=== PATIENT | male | born 1945 | race Caucasian/White ===

== ENCOUNTER 2016-06-12 01:55 | Observation (INO) | payer OTHER ==
[2016-06-12] VITALS (16 sets, daily range): BP systolic 101–139; BP diastolic 59–75; PULSE 62–91; RESP 16–19; TEMP 97.8; O2SAT 94–97
[~2016-06-12] VITALS: Ht 177.8 cm; Wt 129.7 kg
[~2016-06-12 01:55] MED LIST: CIPR500T4 PO; LISI-360 PO; METF850T PO; NOVONP2 SQ; OMEP20CA5 PO; PERC5TAB12 PO; SYNT200T PO; SYNT25TA PO; TYLE3 PO
[2016-06-12] MEDS ORDERED: SODIUM CHLORIDE 0.9% FLUSH 10 ML FLUSH IVF PRN ×2 (02:15→04:45)
[2016-06-12] MEDS ORDERED: ASPIRIN 81 MG CHEW TAB CHEW ONE (02:15)
[2016-06-12] MEDS: NITROGLYCERIN 0.4 MG SL 25 TABS/BTL SL PRN ×3 (02:28→02:44)
[2016-06-12] MEDS: SODIUM CHLOR 0.9% 1000 ML INJ 1,000 ML IV SCH ×2 (02:28→13:50)
[2016-06-12 02:32] LABS: AUTOMATED NEUTROPHIL # 4.4 TH/MM3 (1.8-7.7); BASOPHIL % 0.5 % (0.0-2.0); EOSINOPHIL # 0.2 TH/MM3 (0-0.4); EOSINOPHIL % 2.4 % (0.0-4.0); HEMATOCRIT 38.8 % (39.0-51.0); HEMO FLAGS DIFF FINAL; LYMPH % 31.2 % (9.0-44.0); LYMPHOCYTE # 2.4 TH/MM3 (1.0-4.8); MEAN CELL VOLUME 80.4 FL (80.0-100.0); MEAN CORPUSCULAR HEMOGLOBIN 26.6 PG (27.0-34.0); MEAN CORPUSCULAR HGB CONC 33.1 % (32.0-36.0); MONO % 7.8 % (0.0-8.0); NEUT % 58.1 % (16.0-70.0); PLATELET COUNT 180 TH/MM3 (150-450); RED BLOOD COUNT 4.83 MIL/MM3 (4.50-5.90); RED CELL DISTRIBUTION WIDTH 13.1 % (11.6-17.2); WHITE BLOOD COUNT 7.6 TH/MM3 (4.0-11.0)
[2016-06-12 02:37] LABS: CHLORIDE 105 MEQ/L (98-107); POTASSIUM 3.8 MEQ/L (3.5-5.1); SODIUM (NA) 141 MEQ/L (136-145)
[2016-06-12 02:40] LABS: ANION GAP 7 MEQ/L (5-15); BICARBONATE 28.7 MEQ/L (21.0-32.0); MAGNESIUM 1.9 MG/DL (1.5-2.5)
[2016-06-12 02:41] LABS: BLOOD UREA NITROGEN 21 MG/DL (7-18)
[2016-06-12 02:42] LABS: APTT (PATIENT) 25.5 SEC (24.3-30.1); PROTHROMBIN TIME - PATIENT 10.7 SEC (9.8-11.6)
[2016-06-12 02:44] LABS: GLOMERULAR FILTRATION RATE 55 ML/MIN (>89)
[2016-06-12 02:47] LABS: CREATINE KINASE 147 U/L (39-308)
--- NOTE | 2016-06-12 02:53 | RADHPO ---
EXAM DATE/TIME: 06/12/2016 02:39 [facility] COMPARISON: CHEST SINGLE AP, February 27, 2013, 22:22. INDICATIONS : Chest pain. MEDICAL HISTORY : None. SURGICAL HISTORY : None. ENCOUNTER: Initial ACUITY: 1 day PAIN SCORE: 6/10 LOCATION: Bilateral chest FINDINGS: A single view of the chest demonstrates the lungs to be symmetrically aerated without evidence of mas s, infiltrate or effusion. The cardiomediastinal contours are unremarkable. Osseous structures are intact. Advanced osteoarthritis of the left shoulder. Degenerative changes of the thoracic spine. CONCLUSION: No acute disease. Ole Silva Jr., MD on June 12, 2016 at 2:51 Board Certified Radiologist. This report was verified electronically.
[2016-06-12] MEDS ORDERED: LEVO.2 PO (02:56)
[2016-06-12] MEDS ORDERED: LISI10TA3 PO (02:56)
[2016-06-12] MEDS ORDERED: NOVONP2 SQ (02:56)
[2016-06-12] MEDS ORDERED: METF850T PO (02:56)
[2016-06-12] MEDS ORDERED: TERA10CA3 PO (02:56)
[2016-06-12] MEDS ORDERED: SYNT25TA PO (02:56)
[2016-06-12] MEDS ORDERED: PRIL20CA9 PO (02:56)
[2016-06-12] MEDS ORDERED: GLIP10TA6 PO (02:56)
[2016-06-12] MEDS ORDERED: QUET1TAB9 PO (02:56)
[2016-06-12] MEDS ORDERED: ASPI1TAB69 PO (02:56)
[2016-06-12 02:59] LABS: CKMB 1.9 NG/ML (0.5-3.6)
[2016-06-12] MEDS ORDERED: NITROGLYCERIN 2% OINT 1 GM PACKET TOPICAL ONE (03:45)
[2016-06-12] MEDS ORDERED: ONDANSETRON HCL 4 MG/2 ML VIAL IV PUSH ONE (03:45)
[2016-06-12] MEDS ORDERED: MORPHINE SULFATE 4 MG/ML INJ IV PUSH ONE (03:45)
--- NOTE | 2016-06-12 03:51 | PD ---
HPI Chief Complaint: Chest Pain Time Seen by Provider: 02:11 Travel History International Travel<30 days: No Contact w/Intl Traveler<30days: No Traveled to known affect area: No History of Present Illness HPI 70-year-old male presents to the emergency department for complaint of retrosternal chest pain 5/10 in intensity without shortness of breath sweats nausea vomiting or referred pain. Patient has hypertension dyslipidemia and diabetes. Patient denies tobacco use. Symptoms have been present since approximately 3 PM. Patient did take one 81 mg aspirin prior to arrival to the emergency department. Patient denies known cardiac disease or evaluation for cardiac disease. Patient is followed by the [facility] and does not have a change management manager. Patient rates pain as constant. Patient is unable to identify exacerbating or alleviating factors. PFSH Past Medical History Narrative Medical Hypertension dyslipidemia diabetes hypothyroidism appendectomy cholecystectomy no tobacco use nursing notes. High Cholesterol: Yes Diabetes: Yes Patient Takes Glucophage: No Diminished Hearing: No GERD: Yes Immunizations Current: Yes Thyroid Disease: Yes (HYPO) Tetanus Vaccination: < 5 Years Influenza Vaccination: Yes Past Surgical History Appendectomy: Yes Cholecystectomy: Yes Social History Alcohol Use: No Tobacco Use: No Substance Use: No Allergies-Medications (Allergen,Severity, Reaction): Coded Allergies: Contrast Media (Verified Allergy, Severe, HOSPITALIZED FROM REACTION, 02/27) Reported Meds & Prescriptions Reported Meds & Active Scripts Active Reported Novolin N Inj (Insulin Human NPH) 1,000 Unit/10 Ml Vial 100 Units SQ BID Aspirin 81 Mg Tabdr 81 Mg PO DAILY Terazosin (Terazosin HCl) 10 Mg Cap 10 Mg PO HS Quetiapine (Quetiapine Fumarate) 200 Mg Tab 200 Mg PO HS Glipizide 10 Mg Tab 25 Mg PO BIDAC Take 30 minutes before a meal Synthroid (Levothyroxine Sodium) 25 Mcg Tab 225 Mcg PO DAILY Synthroid (Levothyroxine Sodium) 200 Mcg Tab 200 Mcg PO DAILY Metformin (Metformin HCl) 850 Mg Tab 850 Mg PO BIDPC With meals Prilosec (Omeprazole) 20 Mg Cap 20 Mg PO DAILY Lisinopril 10 Mg Tab 10 Mg PO DAILY Review of Systems Except as stated in HPI: all other systems reviewed are Neg General / Constitutional: No: Fever HENT: No: Congestion Cardiovascular: No: Chest Pain or Discomfort Respiratory: No: Shortness of Breath Gastrointestinal: No: Nausea, Vomiting, Abdominal Pain Genitourinary: No: Flank Pain Musculoskeletal: No: Myalgias, Arthralgias, Edema Skin: No Rash Neurologic: No: Weakness Psychiatric: No: Anxiety Endocrine: No: Heat Intolerance Hematologic/Lymphatic: No: Easy Bruising Physical Exam Narrative GENERAL: Well-developed well-nourished male in no acute distress no respiratory distress SKIN: Warm and dry. HEAD: Normocephalic. EYES: No scleral icterus. No injection or drainage. NECK: Supple, trachea midline. No JVD or lymphadenopathy. CARDIOVASCULAR: Regular rate and rhythm without murmurs, gallops, or rubs. RESPIRATORY: Breath sounds equal bilaterally. No accessory muscle use. GASTROINTESTINAL: Abdomen soft, non-tender, nondistended. MUSCULOSKELETAL: No cyanosis, or edema. Radial and dorsalis pedis pulses 2+ to palpation bilaterally BACK: Nontender without obvious deformity. No CVA tenderness. Data Data Last Documented VS Vital Signs Date Time Temp Pulse Resp B/P Pulse Ox O2 Delivery O2 Flow Rate FiO2 06/12/16 03:59 74 16 117/65 95 Room Air 06/12/16 02:10 97.8 Orders Electrocardiogram (06/12/16 02:11) Basic Metabolic Panel (Bmp) (06/12/16 02:11) Ckmb (Isoenzyme) Profile (06/12/16 02:11) Complete Blood Count With Diff (06/12/16 02:11) Magnesium (Mg) (06/12/16 02:11) Prothrombin Time / Inr (Pt) (06/12/16 02:11) Act Partial Throm Time (Ptt) (06/12/16 02:11) Troponin I (06/12/16 02:11) Chest, Single Ap (06/12/16 02:11) Ecg Monitoring (06/12/16 02:11) Bilateral Bp Monitoring (06/12/16 02:11) Iv Access Insert/Monitor (06/12/16 02:11) Oximetry (06/12/16 02:11) Oxygen Administration (06/12/16 02:11) Sodium Chloride 0.9% Flush (Ns Flush) (06/12/16 02:15) Aspirin Chew (Aspirin Chew) (06/12/16 02:15) Nitroglycerin Sl (Nitrostat Sl) (06/12/16 02:15) Sodium Chlor 0.9% 1000 Ml Inj (Ns 1000 M (06/12/16 02:15) CKMB (06/12/16 02:19) CKMB% (06/12/16 02:19) Morphine Inj (Morphine Inj) (06/12/16 03:45) Ondansetron Inj (Zofran Inj) (06/12/16 03:45) Nitroglycerin 2% Oint (Nitroglycerin 2% (06/12/16 03:45) Sodium Chlorid 0.9% 500 Ml Inj (Ns 500 M (06/12/16 04:00) Admit Order (Ed Use Only) (06/12/16 ) ^ Saline Lock (06/12/16 04:41) Resp Oxygen Sukhdev C Titrat 1-4 L (06/12/16 ) ^ Notify Dr: Other (06/12/16 04:41) Sodium Chloride 0.9% Flush (Ns Flush) (06/12/16 09:00) Sodium Chloride 0.9% Flush (Ns Flush) (06/12/16 04:45) Labs Laboratory Tests Test 06/12/16 02:19 White Blood Count 7.6 TH/MM3 Red Blood Count 4.83 MIL/MM3 Hemoglobin 12.9 GM/DL Hematocrit 38.8 % Mean Corpuscular Volume 80.4 FL Mean Corpuscular Hemoglobin 26.6 PG Mean Corpuscular Hemoglobin 33.1 % Concent Red Cell Distribution Width 13.1 % Platelet Count 180 TH/MM3 Mean Platelet Volume 8.4 FL Neutrophils (%) (Auto) 58.1 % Lymphocytes (%) (Auto) 31.2 % Monocytes (%) (Auto) 7.8 % Eosinophils (%) (Auto) 2.4 % Basophils (%) (Auto) 0.5 % Neutrophils # (Auto) 4.4 TH/MM3 Lymphocytes # (Auto) 2.4 TH/MM3 Monocytes # (Auto) 0.6 TH/MM3 Eosinophils # (Auto) 0.2 TH/MM3 Basophils # (Auto) 0.0 TH/MM3 CBC Comment DIFF FINAL Differential Comment Prothrombin Time 10.7 SEC Prothromb Time International 1.0 RATIO Ratio Activated Partial 25.5 SEC Thromboplast Time Sodium Level 141 MEQ/L Potassium Level 3.8 MEQ/L Chloride Level 105 MEQ/L Carbon Dioxide Level 28.7 MEQ/L Anion Gap 7 MEQ/L Blood Urea Nitrogen 21 MG/DL Creatinine 1.30 MG/DL Estimat Glomerular Filtration 55 ML/MIN Rate Random Glucose 210 MG/DL Calcium Level 8.2 MG/DL Magnesium Level 1.9 MG/DL Total Creatine Kinase 147 U/L Creatine Kinase MB 1.9 NG/ML Troponin I LESS THAN 0.02 NG/ML MDM Medical Decision Making Medical Screen Exam Complete: Yes Emergency Medical Condition: Yes Medical Record Reviewed: Yes Interpretation(s) EKG: Normal sinus rhythm rate 80 with first-degree AV block left axis deviation right bundle branch block with left anterior fascicular block this is been noted since 02/27/13 Troponin I less than 0.02, not elevated; CK: 147, not elevated Last Impressions Chest X-Ray 06/12/16210 Signed Impressions: Service Date/Time: Sunday, June 12, 2016 02:39 - CONCLUSION: No acute disease. Ole Silva Jr., MD CBC & BMP Diagram 06/12/16 02:19 Differential Diagnosis Chest pain, ACS, myocardial infarction, musculoskeletal pain, pleurisy, PE, pneumonia Narrative Course Patient placed on technical service specialist; EKG performed revealing no acute ST elevation ; IV access obtained; specimens collected and sent for resulting; patient administered aspirin 162 mg by mouth along with sublingual nitroglycerin Patient reassessed pain has decreased to less than 1/10 in intensity and patient is resting comfortably waiting on lab results EKG reveals no acute ST elevation and chest x-ray reveals no acute abnormality Labs resulted and cardiac enzymes are normal range patient's blood sugars elevated at 210 patient is diabetic Patient will be admitted to chest pain center per protocol call placed to have his service; nurse reports patient doesn't complain of recurrent pain patient administered nitro paste half inch to chest wall along with Zofran 4 mg and 2 mg of morphine sulfate. Patient also administered 500 ml NS bolus. Patient reassessed reports discomfort has diminished again is refusing morphine sulfate which has been canceled. Patient resting comfortably no report of pain. Admitted to [facility]. Physician Communication Physician Communication Discussed with [facility] for chest pain center protocol admission Diagnosis Primary Impression: Chest pain Admitting Information Admitting Physician Requests: Observation Linsey Huerta MD Jun 12, 2016 03:51
[2016-06-12] MEDS ORDERED: SODIUM CHLORID 0.9% 500 ML INJ 500 ML IV ONE (04:00)
[2016-06-12] MEDS ORDERED: SODIUM CHLORIDE 0.9% FLUSH 10 ML FLUSH IV FLUSH PRN (04:45)
[2016-06-12 06:04] LABS: CREATINE KINASE 122 U/L (39-308)
[2016-06-12 06:17] LABS: CKMB 1.7 NG/ML (0.5-3.6)
[2016-06-12] MEDS ORDERED: DEXTROSE 50% IN WATER 50 ML VIAL(D50) IV PUSH PRN (07:30)
[2016-06-12] MEDS ORDERED: GLUCAGON 1 MG/ML VIAL OTHER PRN (07:30)
[2016-06-12] MEDS ORDERED: LEVOTHYROXINE SODIUM 25 MCG TAB PO SCH ×2 (08:00→09:00)
[2016-06-12] MEDS ORDERED: LEVOTHYROXINE SODIUM 200 MCG TAB PO SCH ×2 (08:00→09:00)
--- NOTE | 2016-06-12 08:35 | HHI.HP ---
[facility] Admission Diagnosis chest pain Diagnoses: (1) Chest pain Diagnosis: Principal Chief Complaint: chest pain Travel History International Travel<30 Days: No Contact w/Intl Traveler <30 Da: No Traveled to Known Affected Are: No History of Present Illness 70-year-old male with history of diabetes and hypothyroidism is admitted to chest pain center. Patient states pain started over the left chest at 3 PM yesterday and stayed all day. He describes the pain as "dull achy". He denies any radiation of pain elsewhere. Denies any diaphoresis. Patient states it hurts when he touches a specific area over the left chest but denies pain when he moves his left arm. He does admit to pain with his normal activities. He denies anything making the pain feel better. He states the pain was a 4-5/10 and is currently a 1/10. Denies any cough. 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 Admits to chronic diarrhea but denies any nausea or vomiting. Patient has been nothing by mouth since 9 PM last night. Review of Systems Except as stated in HPI: all other systems reviewed are Neg Past Family Social History Past Medical History Diabetes Hypothyroidism; Thyroid "burned out" Patient states he takes antihypertensive due to diabetes. GERD per EMR Past Surgical History Appendectomy Cholecystectomy Bowel resection Reported Medications Novolin N Inj (Insulin Human NPH) 1,000 Unit/10 Ml Vial 100 Units SQ BID Aspirin 81 Mg Tabdr 81 Mg PO DAILY Terazosin (Terazosin HCl) 10 Mg Cap 10 Mg PO HS Quetiapine (Quetiapine Fumarate) 200 Mg Tab 200 Mg PO HS Glipizide 10 Mg Tab 25 Mg PO BIDAC Take 30 minutes before a meal Synthroid (Levothyroxine Sodium) 25 Mcg Tab 225 Mcg PO DAILY Synthroid (Levothyroxine Sodium) 200 Mcg Tab 200 Mcg PO DAILY Metformin (Metformin HCl) 850 Mg Tab 850 Mg PO BIDPC With meals Prilosec (Omeprazole) 20 Mg Cap 20 Mg PO DAILY Lisinopril 10 Mg Tab 10 Mg PO DAILY Allergies: Coded Allergies: Contrast Media (Verified Allergy, Severe, HOSPITALIZED FROM REACTION, 06/12) Elavil (Verified Allergy, Unknown, 06/12/16) Amitriptyline (Verified Adverse Reaction, Intermediate, [place], ) Family History Mother: Became a diabetic in her 70s. Patient denies any history of heart disease in his mother or father. Social History Patient drinks ~1 beer per week. Patient quit smoking cigarettes at age of 51. Denies illicit drug use. Physical Exam Vital Signs Vital Signs Date Time Temp Pulse Resp B/P Pulse Ox O2 Delivery O2 Flow Rate FiO2 06/12/16 07:56 95 21 06/12/16 05:36 62 16 114/59 96 Room Air 06/12/16 05:36 Room Air 06/12/16 05:02 95 21 06/12/16 03:59 74 16 117/65 95 Room Air 06/12/16 03:45 75 16 101/62 95 Room Air 06/12/16 03:35 79 18 124/68 95 Room Air 06/12/16 03:00 80 19 116/74 94 Room Air 06/12/16 02:44 90 17 112/62 94 Room Air 06/12/16 02:41 18 06/12/16 02:30 91 18 114/62 95 Room Air 06/12/16 02:25 74 18 124/68 96 Room Air 06/12/16 02:18 18 95 Room Air 06/12/16 02:18 95 Room Air 06/12/16 02:15 80 18 116/74 97 Room Air 124/68 06/12/16 02:12 81 18 95 Room Air 06/12/16 02:10 97.8 81 18 139/68 95 Physical Exam GENERAL: BMI 41.0. This is a well-nourished, well-developed patient, in no apparent distress. SKIN: No rashes, ecchymoses or lesions. Warm and dry. HEAD: Atraumatic. Normocephalic. EYES: Pupils equal round and reactive. No scleral icterus. No injection or drainage. ENT: Throat without erythema, tonsillar hypertrophy or exudate. Uvula midline. Airway patent. CHEST: Tender over L lateral pectoral muscle. CARDIOVASCULAR: Regular rate and rhythm without murmurs, gallops, or rubs. RESPIRATORY: Clear to auscultation. Breath sounds equal bilaterally. No wheezes , rales, or rhonchi. GASTROINTESTINAL: Abdomen soft, non-tender, nondistended. MUSCULOSKELETAL: No lower extremity edema bilaterally. NEUROLOGICAL: Awake and alert. Motor grossly within normal limits. Normal speech. Laboratory Laboratory Tests Test 06/12/16 06/12/16 02:19 05:30 White Blood Count 7.6 Red Blood Count 4.83 Hemoglobin 12.9 Hematocrit 38.8 Mean Corpuscular Volume 80.4 Mean Corpuscular Hemoglobin 26.6 Mean Corpuscular Hemoglobin 33.1 Concent Red Cell Distribution Width 13.1 Platelet Count 180 Mean Platelet Volume 8.4 Neutrophils (%) (Auto) 58.1 Lymphocytes (%) (Auto) 31.2 Monocytes (%) (Auto) 7.8 Eosinophils (%) (Auto) 2.4 Basophils (%) (Auto) 0.5 Neutrophils # (Auto) 4.4 Lymphocytes # (Auto) 2.4 Monocytes # (Auto) 0.6 Eosinophils # (Auto) 0.2 Basophils # (Auto) 0.0 CBC Comment DIFF FINAL Differential Comment Prothrombin Time 10.7 Prothromb Time International 1.0 Ratio Activated Partial 25.5 Thromboplast Time Sodium Level 141 Potassium Level 3.8 Chloride Level 105 Carbon Dioxide Level 28.7 Anion Gap 7 Blood Urea Nitrogen 21 Creatinine 1.30 Estimat Glomerular Filtration 55 Rate Random Glucose 210 Calcium Level 8.2 Magnesium Level 1.9 Total Creatine Kinase 147 122 Creatine Kinase MB 1.9 1.7 Troponin I LESS THAN 0.02 LESS THAN 0.02 Result Diagram: 06/12/1621806/12/16218 Imaging Last Impressions Chest X-Ray 06/12/16210 Signed Impressions: Service Date/Time: Sunday, June 12, 2016 02:39 - CONCLUSION: No acute disease. Ole Silva Jr., MD Assessment and Plan Assessment and Plan 70-year-old male with: Chest pain: Chest pain since yesterday. Patient does have a musculoskeletal component of chest pain, but also has risk factors for CAD including age, diabetes, previous h/o tobacco use. Troponin 3 less than 0.02. CK-MB 3 normal. CBC unremarkable. Chest x-ray personally reviewed and appears similar to prior, with no acute disease. EKGs 3 personally interpreted as below: EKG #1 personally interpreted with normal sinus rhythm, right bundle branch block, first-degree AV block with TX interval 216, and left axis deviation. No evidence of ischemia. EKG #2 personally interpreted with normal sinus rhythm, right bundle branch block, left axis deviation, and no evidence of ischemia. EKG #3 @ 0946 personally interpreted with normal sinus rhythm, right bundle branch block, left axis deviation, and no evidence of ischemia. -Patient received 162 mg of aspirin at ~0230. Will continue his home 81 mg daily aspirin this morning. -Nitro/Pratts/morphine prn pain. Patient received 3 doses of sublingual nitroglycerin in the ED, but it does not appear he had significant improvement with this. He also had Nitro ointment. -Monitor telemetry -Nuclear stress test ordered for today -NPO. Was started on IV NS as maintenance fluid. Diabetes: Random BGL 210 in ED. -Hold metformin and glipizide for stress test. -Bedside Accu-Checks with low-dose sliding scale insulin as needed. Hold sliding scale insulin if BGL< 200 since patient NPO. Continue home medications including Synthroid and Lisinopril. GI prophylaxis: Continue home PPI. DVT prevention: SCDs. Written by Aide Pulido PA-C acting as scribe for Dr. Dowd on 06/12/16 at 0813. All or portions of this note were transcribed by scribe Aide Pulido PA-C. I , Dr. Wes Dowd personally performed the history, physical exam, and medical decision making; and confirmed the accuracy of the information in the transcribed note. Authenticated by Dr. Wes Dowd on 06/12/16 at 10:58. Discussed Condition With patient Aide Pulido Jun 12, 2016 08:35 Wes Dowd MD Jun 12, 2016 10:58
[2016-06-12 08:58] LABS: CREATINE KINASE 112 U/L (39-308)
[2016-06-12] MEDS ORDERED: PANTOPRAZOLE SOD 20 MG DELAYED RELEASE TAB PO SCH (09:00)
[2016-06-12] MEDS ORDERED: ASPIRIN EC 81 MG TABEC PO SCH (09:00)
[2016-06-12] MEDS ORDERED: SODIUM CHLORIDE 0.9% FLUSH 10 ML FLUSH IV FLUSH SCH (09:00)
[2016-06-12] MEDS ORDERED: LISINOPRIL 10 MG TAB PO SCH (09:00)
[2016-06-12] MEDS ORDERED: SODIUM CHLORIDE 0.9% FLUSH 10 ML FLUSH SCH (09:00)
[2016-06-12 09:11] LABS: CKMB 1.5 NG/ML (0.5-3.6)
[2016-06-12] MEDS ORDERED: ACETAMINOPHEN/HYDROcodone 325 MG/7.5 MG TAB PO PRN (10:15)
[2016-06-12] MEDS ORDERED: MORPHINE SULFATE 4 MG/ML INJ IV PRN (10:15)
[2016-06-12] MEDS ORDERED: ACETAMINOPHEN 500 MG CPLT PO PRN (10:15)
[2016-06-12] MEDS: INSULIN ASPART SUPPLEMENTAL SCALE SQ SCH ×2 (10:53→15:56)
[2016-06-12] MEDS ORDERED: REGADENOSON INJ 0.4 MG/5 ML SYR IV ONE (12:45)
--- NOTE | 2016-06-12 14:23 | RADHPO ---
EXAM DATE/TIME: 06/12/2016 13:26 [facility] COMPARISON: No previous studies available for comparison. INDICATIONS : Retrosternal chest pain for 1 day. Angina. DOSE: 35 mCi Tc99m Myoview at stress. 11 mCi Tc99m Myoview at rest. 0.4 mg Lexiscan STRESS SYMPTOMS: Lightheaded and shortness of breath. EJECTION FRACTION: 57% MEDICAL HISTORY : Diabetes mellitus type 2. Hypothyroidism. Hypertension. SURGICAL HISTORY : Arthroscopy. Cholecystectomy. ENCOUNTER: Initial ACUITY: 1 day PAIN SCALE: 5/10 LOCATION: Retrosternal chest TECHNIQUE: The patient underwent pharmacologic stress with infusion of prescribed dose. Continuous ECG tracing was monitored during stress. Gated SPECT imaging was performed after stress and conventional SPECT i maging was performed at rest. The examination was performed on a SPECT/CT scanner, both attenuation and non-corrected datasets were reviewed. FINDINGS: DISTRIBUTION: The maximum perfused segment at stress is equally distributed between the septal and lateral patel. I mage sets were normalized to the lateral wall. PERFUSION STUDY: The pattern of perfusion at stress shows fixed diminished perfusion to the low inferolateral wall ext ending into the apex. There is also some relative diminished perfusion in the upper anterior wall on both the rest and stress images. GATED STUDY: There is intact wall motion and thickening without hypokinetic or dyskinetic segments. CONCLUSION: 1. No scintigraphic evidence of ischemia. 2. Possible old low inferolateral/apical infarct and upper anterior wall infarct. 3. Adequate wall motion throughout with an estimated ejection fraction of 57% RISK CATEGORY: Low (<1% Annual Mortality Rate) Markus Kathleen MD on June 12, 2016 at 14:17 Board Certified Radiologist. This report was verified electronically.
--- NOTE | 2016-06-12 15:24 | HHI.DCPOC ---
Discharge Care Plan Diagnosis: (1) Chest pain Your Health Problems Are: Chest Pain Goals to Promote Your Health * To prevent worsening of your condition and complications * To maintain your health at the optimal level Directions to Meet Your Goals Take your medications as prescribed Follow your dietary instruction Follow activity as directed Keep your appointments as scheduled Take your immunizations and boosters as scheduled If your symptoms worsen call your PCP, if no PCP go to Urgent Care Center or Emergency Room Smoking is Dangerous to Your Health. Avoid second hand smoke Call the 24-hour hour crisis hotline for domestic abuse at Aide Pulido Jun 12, 2016 15:24
--- NOTE | 2016-06-12 16:07 | TR ---
Date Performed: 06/12/2016 Time Performed: 12:55:34 DOCTOR: Lindy Arreaga DRUG LIST: CLINICAL HISTORY: REASON FOR TEST: Chest pain REASON FOR ENDING: OBSERVATION: CONCLUSION: Lexiscan stress test was performed under standard four minute protocol. Radionuclid e was injected one minute prior to ending the test. No electrocardiographic abormalities were present to suggest ischemia. Nuclear imaging and interpretation are pending. COMMENTS:
[2016-06-12] MEDS ORDERED: QUEtiapine FUMARATE 200 MG TAB PO SCH (21:00)
--- NOTE | 2016-06-13 11:04 | EKG ---
Date Performed: 06/12/2016 Time Performed: 04:28:10 PTAGE: 70 years EKG: Sinus rhythm Left axis deviation RBBB with left anterior fascicular block Abnormal ECG PREVIOUS TRACING : 06/12/2016 01.01 DOCTOR: Yair Williamson Interpretating Date/Time 06/13/2016 11:01:19
--- NOTE | 2016-06-13 11:06 | EKG ---
Date Performed: 06/12/2016 Time Performed: 01:01:20 PTAGE: 70 years EKG: Sinus rhythm with borderline 1st degree A-V block Left axis deviation RBBB with left anterior fascicular block Ab normal ECG PREVIOUS TRACING : 02/27/2013 22.32 DOCTOR: Yair Williamson Interpretating Date/Time 06/13/2016 11:03:17
--- NOTE | 2016-06-13 17:10 | EKG ---
Date Performed: 06/12/2016 Time Performed: 07:30:04 PTAGE: 70 years EKG: Sinus rhythm Left axis deviation RBBB with left anterior fascicular block Abnormal ECG PREVIOUS TRACING : 06/12/2016 04.28 DOCTOR: Jimbo Haddad Interpretating Date/Time 06/13/2016 17:09:08
--- NOTE | 2016-06-13 17:16 | EKG ---
Date Performed: 06/12/2016 Time Performed: 09:46:24 PTAGE: 70 years EKG: Sinus rhythm Left axis deviation RBBB with left anterior fascicular block Compared to prior tracing no significan t change Abnormal ECG PREVIOUS TRACING : 06/12/2016 04.28 DOCTOR: Jimbo Haddad Interpretating Date/Time 06/13/2016 17:14:49
== END 2016-06-12 17:04 | disposition home or self-care (01) ==
LOC: PHED 01:55 → PHEDA 04:42 → PHEDH 08:53
PROVIDERS: ADMIT Family Medicine; ATTEND Family Medicine
DX: R07.89 Other chest pain (principal); E11.9 Type 2 diabetes mellitus without complications; E03.9 Hypothyroidism, unspecified; K21.9 Gastro-esophageal reflux disease without esophagitis; I10 Essential (primary) hypertension; E78.00 Pure hypercholesterolemia, unspecified; Z91.041 Radiographic dye allergy status; Z87.891 Personal history of nicotine dependence; Z79.82 Long term (current) use of aspirin; Z79.4 Long term (current) use of insulin; Z88.8 Allergy status to other drugs, medicaments and biological substances
CPT/HCPCS: 71010; 78452; 80048; 82550; 82552; 83735; 84484; 85025; 85610; 85730; 93005; 93017; 96360; 96361; A9502; G0378; J2785; J7030; J7040

== ENCOUNTER 2017-12-31 00:04 | Inpatient (IN) ==
[2017-12-31] MEDS ORDERED: Charcoal Activated Liq 25 GM/120 ML Bottle NG/OG ONE (00:38)
[2017-12-31 01:05] LABS: Baso # (Auto) 0.1 th/mm3 (0.0-0.2); Eos # (Auto) 0.1 th/mm3 (0.0-0.4); Eos % (Auto) 1.1 % (0.0-4.0); Hematocrit 41.4 % (39.0-51.0); Hemoglobin 14.6 gm/dL (13.0-17.0); Lymph # (Auto) 2.3 th/mm3 (1.0-4.8); Lymph % (Auto) 29.8 % (9.0-44.0); Mean Corpuscular HGB Conc 35.2 % (32.0-36.0); Mean Corpuscular Hemoglobin 29.4 pg (27.0-34.0); Mean Corpuscular Volume 83.4 fL (80.0-100.0); Mean Platelet Volume 9.2 fL (7.0-11.0); Mono # (Auto) 0.6 th/mm3 (0.0-0.9); Mono % (Auto) 8.2 % (0.0-8.0); Neut # (Auto) 4.7 th/mm3 (1.8-7.7); Neut % (Auto) 59.9 % (16.0-70.0); Platelet Count 176 th/mm3 (150-450); Red Blood Count 4.96 mil/mm3 (4.50-5.90); Red Cell Distribution Width 12.9 % (11.6-17.2); White Blood Count 7.8 th/mm3 (4.0-11.0)
[2017-12-31 01:15] LABS: Chloride 106 meq/L (98-107); Potassium 3.7 meq/L (3.5-5.1); Sodium 141 meq/L (136-145)
[2017-12-31 01:18] LABS: Albumin 3.4 g/dL (3.4-5.0); Anion Gap 11 meq/L (5-15); Calcium 8.4 mg/dL (8.5-10.1); Carbon Dioxide 24.1 meq/L (21.0-32.0); Glucose,Random 109 mg/dL (74-106)
[2017-12-31 01:19] LABS: Blood Urea Nitrogen 19 mg/dL (7-18)
[2017-12-31 01:21] LABS: Alanine Aminotransferase 25 U/L (12-78)
[2017-12-31 01:22] LABS: Aspartate Aminotransferase 31 U/L (15-37); Glomerular Filtration Rate 74 mL/min (>89)
[2017-12-31 01:23] LABS: Phosphorus 3.5 mg/dL (2.5-4.9); Total Protein 7.1 g/dL (6.4-8.2)
[2017-12-31 01:24] LABS: Alkaline Phosphatase 73 U/L (45-117)
--- NOTE | 2017-12-31 01:26 | ED ---
HPI General Chief Complaint: Overdose Stated Complaint: Accidental overdose of sleeping meds 10 mins ago Time Seen by Provider: 12/31/17 00:29 Source: patient Mode of arrival: ambulatory Limitations: no limitations History of Present Illness HPI Narrative: Patient inadvertently took 2 g of Seroquel 20 minutes prior to arrival. Patient apparently had to handfuls of medication 1 he was putting back in the in the bottle and the other he was going to take. Unfortunately he is very inadvertently took 2 g of Seroquel simultaneously. Patient immediately came to emergency department before symptoms evolved. Patient takes the Seroquel for sleep. He normally takes 400 mg per night. Patient also has a history of diabetes but is otherwise healthy with hyper lipidemia that is under controlled. Patient did not take this medication to take take his life or harm himself. Related Data Home Medications Medication Instructions Recorded Confirmed aspirin [Aspirin Low Dose] 81 mg PO DAILY 12/31/17 12/31/17 potassium gluconate 550 mg PO DAILY 12/31/17 12/31/17 quetiapine [Seroquel] 200 mg PO HS 12/31/17 12/31/17 Allergies Allergy/AdvReac Type Severity Reaction Status Date / Time diatrizoate meglumine Allergy Severe HOSPITALIZED Verified 12/31/17 00:37 FROM REACTION gadobenic acid Allergy Severe HOSPITALIZED Verified 12/31/17 00:37 FROM REACTION gadodiamide Allergy Severe HOSPITALIZED Verified 12/31/17 00:37 FROM REACTION gadoteridol Allergy Severe HOSPITALIZED Verified 12/31/17 00:37 FROM REACTION iodixanol Allergy Severe HOSPITALIZED Verified 12/31/17 00:37 FROM REACTION iohexol Allergy Severe HOSPITALIZED Verified 12/31/17 00:37 FROM REACTION amitriptyline Allergy Unknown Confusion Verified 12/31/17 00:37 Review of Systems ROS: all other systems reviewed are negative [facility] Medical History Medical History Diabetes (Acute) High cholesterol (Acute) Thyroid disease (Acute) Surgical History Surgical History Hx of cholecystectomy (Acute) Social History Social History Substance History: No History of Abuse Smoking Status: Former smoker How Often Do You Have a Drink Containing Alcohol: 2 to 4 times a month Recent Out of Country Travel within the Last 8 Weeks: No Exam Narrative Exam Narrative: GENERAL: Alert and oriented in no acute distress SKIN: Focused skin assessment warm/dry. HEAD: Atraumatic. Normocephalic. EYES: Pupils equal and round. No scleral icterus. No injection or drainage. ENT: No nasal bleeding or discharge. Mucous membranes pink and moist. NECK: Trachea midline. No JVD. CARDIOVASCULAR: Regular rate and rhythm. No murmur appreciated. RESPIRATORY: No accessory muscle use. Clear to auscultation. Breath sounds equal bilaterally. GASTROINTESTINAL: Abdomen soft, non-tender, nondistended. Hepatic and splenic margins not palpable. MUSCULOSKELETAL: No obvious deformities. No clubbing. No cyanosis. No edema. NEUROLOGICAL: Awake and alert. No obvious cranial nerve deficits. Motor grossly within normal limits. Normal speech. PSYCHIATRIC: Appropriate mood and affect; insight and judgment normal. Course Reevaluation(s) Reevaluation #1: Immediately after arrival of patient I talked to poison control agent Isreal . Despite the patient had been here only 20 minutes after the ingestion, advice was given to treat with charcoal only. However it was recommended that the patient be admitted to a monitored bed to treat for potential prolongation of QT interval. Additionally patient has potential of increased stress that may or may not require Ativan at all. Patient requires frequent EKGs to monitor QT interval. Patient stable for transport and is slightly lethargic but alert and functional. Patient accepted by Dr. Rojas the string cutter Time: 01:24 Initial Documented Vital Signs Temperature 97.8 F 12/31/17 00:12 Pulse Rate 73 12/31/17 00:12 Respiratory Rate 18 12/31/17 00:12 Blood Pressure 139/72 12/31/17 00:12 Pulse Oximetry 98 12/31/17 00:12 Last Documented Vital Signs Temperature 97.8 F 12/31/17 00:12 Pulse Rate 98 H 12/31/17 01:00 Respiratory Rate 20 12/31/17 01:00 Blood Pressure 118/71 12/31/17 01:00 Pulse Oximetry 97 12/31/17 01:00 Critical Care Time Critical Care Time: Yes Total Critical Care Time: 70 Attestation: Not indicated Medical Decision Making MDM Narrative Medical decision making narrative: Patient has accidental overdose of Seroquel. Discussed with poison control and patient needs to be admitted on bus monitor for prolongation of QT. Patient had active charcoal to reduce the absorption of the Seroquel and admitted to ICU at [facility]. Patient is stable at the present time. No prolongation of QT interval presently. Medical Screen Exam Complete: Yes Emergency Medical Condition: Yes Lab Data Result diagrams: 12/31/17 00:20 12/31/17 00:20 Lab Results 12/31/17 12/31/17 12/31/17 Range/Units 00:20 00:20 00:20 CBC w Diff Auto diff final WBC 7.8 (4.0-11.0) th/mm3 RBC 4.96 (4.50-5.90) mil/mm3 Hgb 14.6 (13.0-17.0) gm/dL Hct 41.4 (39.0-51.0) % MCV 83.4 (80.0-100.0) fL MCH 29.4 (27.0-34.0) pg MCHC 35.2 (32.0-36.0) % RDW 12.9 (11.6-17.2) % Plt Count 176 (150-450) th/mm3 MPV 9.2 (7.0-11.0) fL Neut % (Auto) 59.9 (16.0-70.0) % Lymph % (Auto) 29.8 (9.0-44.0) % [place] % (Auto) 8.2 H (0.0-8.0) % Eos % (Auto) 1.1 (0.0-4.0) % Baso % (Auto) 1.0 (0.0-2.0) % Neut # (Auto) 4.7 (1.8-7.7) th/mm3 Lymph # (Auto) 2.3 (1.0-4.8) th/mm3 [place] # (Auto) 0.6 (0.0-0.9) th/mm3 Eos # (Auto) 0.1 (0.0-0.4) th/mm3 Baso # (Auto) 0.1 (0.0-0.2) th/mm3 WBC Differential . Differential Comment . Sodium 141 (136-145) meq/L Potassium 3.7 (3.5-5.1) meq/L Chloride 106 (98-107) meq/L Carbon Dioxide 24.1 (21.0-32.0) meq/L Anion Gap 11 (5-15) meq/L BUN 19 H (7-18) mg/dL Random Glucose 109 H (74-106) mg/dL Calcium 8.4 L (8.5-10.1) mg/dL Magnesium 2.0 (1.5-2.5) mg/dL Albumin 3.4 (3.4-5.0) g/dL Discharge Plan Discharge Disposition Patient Disposition: 02 Transfer To [facility] – [place] Physicians Team ED Provider: Nino Vicente Primary Care Provider: [facility]ician [facility] Rxs /Orders / Referrals /Forms Prescriptions: No Action quetiapine [Seroquel] 200 mg Tablet 200 mg PO HS RF: 0 aspirin [Aspirin Low Dose] 81 mg Tablet,Delayed Release (Dr/Ec) 81 mg PO DAILY RF: 0 potassium gluconate 550 mg (90 mg) Tablet 550 mg PO DAILY RF: 0 Discharge Interventions Interventions: Vital Signs Last Done: 12/31/17 01:00 Status ED Status: With Doctor
[2017-12-31] MEDS ORDERED: Dextrose 50% in Water 50 ML Vial IV.PUSH PRN (03:39)
[2017-12-31] MEDS ORDERED: Bisacodyl 10 MG Supp RECTAL PRN (03:39)
[2017-12-31] MEDS ORDERED: Temazepam 15 MG Capsule PO PRN (03:39)
[2017-12-31] MEDS ORDERED: Acetaminophen 325 MG Tablet PO PRN (03:39)
--- NOTE | 2017-12-31 03:48 | P.HPCC ---
History of Present Illness Primary Care Physician: [facility] History of Present Illness: 80-year-old very pleasant gentleman who incidentally took 2 g of Seroquel 20 minutes prior to arrival to emergency department at [facility]. Patient apparently had to handfuls of medication 1 he was putting back in the in the bottle and the other he was going to take. Unfortunately he is very inadvertently took 2 g of Seroquel simultaneously. Patient immediately came to emergency department before symptoms evolved. He takes the Seroquel for sleep. He normally takes 400 mg per night. Patient also has a history of diabetes but is otherwise healthy with hyperlipidemia that is under controlled. Patient did not take this medication to take take his life or harm himself. He has received activated charcoal at [place], Poison Control Center was notified and recommended telemetry with supportive care. The patient has been admitted to critical care [facility] at the [facility]. Inpatient Certification: I certify that the inpatient services were ordered in accordance with Medicare regulations governing the order. This includes certification that hospital inpatient services are reasonable and necessary and in the case of services not specified as inpatient-only under 42 CFR 419.22(n), that they are appropriately provided as inpatient services in accordance to with the 2-midnight benchmark under 43 CFR 412.3(e) Estimated Total Length of Stay (Days): 5 Plans for Post Hospital Care: Not yet determined Review of Systems All other systems reviewed negative except as stated in HPI REPLACED BY [facility] - History History Provided By: Patient - Medical History Medical History: Medical History (Last Reviewed 12/31/17 @ 01:23 by Nino Vicente MD) Diabetes High cholesterol Thyroid disease - Surgical History Surgical History: Surgical History (Last Reviewed 12/31/17 @ 01:23 by Nino Vicente MD) Hx of cholecystectomy - Tobacco History Smoking Status: Former smoker - Alcohol History How Often Do You Have a Drink Containing Alcohol: 2 to 4 times a month - Substance Use History Substance History: No History of Abuse - Travel History Recent Travel Out of the Country Within the Last 8 Weeks: No - Immunization History Tetanus Immunization: <5 Years Medications and Allergies Active Medications: Active Medications Acetaminophen (Tylenol) 650 mg PO Q6H PRN PRN Reason: PAIN 1-10 AND/OR FEVER >101F Al Hydroxide/Mg Hydroxide (Milk Of Magnesia Liq) 30 ml PO Q12H PRN PRN Reason: Mild Constipation Albuterol (Duoneb Neb (Prn)) 1 ampul NEB Q2HR NEB PRN PRN Reason: WHEEZING Aspirin (Ecotrin) 81 mg PO DAILY SHANT Bisacodyl (Dulcolax Supp) 10 mg RECTAL DAILY PRN PRN Reason: SEVERE CONSITIPATION Chlorhexidine Gluconate (Chlorhexidine 2% Cloth) 3 pack TOPICAL DAILY@0400 SHANT Stop: 01/05/18 03:59 Chlorhexidine Gluconate (Chlorhexidine 2% Cloth) 3 pack TOPICAL DAILY@0400 PRN PRN Reason: Extra cloth needed Stop: 01/05/18 03:59 Dextrose (D50w Vial) 50 ml IV.PUSH UNSCH PRN PRN Reason: PER HYPOGLYCEMIA PROTOCOL Enoxaparin Sodium (Lovenox Inj) 40 mg SQ Q24H SHANT Glucagon (Glucagon Inj) 1 mg OTHER PRN PRN PRN Reason: for Hypoglycemia Protocol Insulin Aspart (Novolog Insulin Correctional Sugar Inj) 0 unit SQ ACHS SHANT; Protocol Lactulose (Lactulose Liq) 30 ml PO DAILY PRN PRN Reason: SEVERE CONSITIPATION Ondansetron HCl (Zofran Inj) 4 mg IV.PUSH Q6H PRN PRN Reason: NAUSEA OR VOMITING Sodium Chloride (Ns Flush) 2 ml IV.FLUSH PRN PRN PRN Reason: FLUSH AFTER USING IV ACCESS Allergies Allergy/AdvReac Type Severity Reaction Status Date / Time diatrizoate meglumine Allergy Severe HOSPITALIZED Verified 12/31/17 00:37 FROM REACTION gadobenic acid Allergy Severe HOSPITALIZED Verified 12/31/17 00:37 FROM REACTION gadodiamide Allergy Severe HOSPITALIZED Verified 12/31/17 00:37 FROM REACTION gadoteridol Allergy Severe HOSPITALIZED Verified 12/31/17 00:37 FROM REACTION iodixanol Allergy Severe HOSPITALIZED Verified 12/31/17 00:37 FROM REACTION iohexol Allergy Severe HOSPITALIZED Verified 12/31/17 00:37 FROM REACTION amitriptyline Allergy Unknown Confusion Verified 12/31/17 00:37 Home Medications Medication Instructions Recorded Confirmed Type aspirin [Aspirin Low Dose] 81 mg PO DAILY 12/31/17 12/31/17 History potassium gluconate 550 mg PO DAILY 12/31/17 12/31/17 History quetiapine [Seroquel] 200 mg PO HS 12/31/17 12/31/17 History Results - Labs CBC & Chem 7: 12/31/17 00:20 12/31/17 00:20 Labs: Short CBC 12/31/17 Range/Units 00:20 WBC 7.8 (4.0-11.0) th/mm3 Hgb 14.6 (13.0-17.0) gm/dL Hct 41.4 (39.0-51.0) % Plt Count 176 (150-450) th/mm3 BMP 12/31/17 00:20 Sodium 141 Potassium 3.7 Chloride 106 Carbon Dioxide 24.1 BUN 19 H Creatinine 1.00 Calcium 8.4 L Cardiac Enzymes 12/31/17 Range/Units 00:20 Troponin I Less than 0.02 L (0.02-0.05) ng/mL Liver Function 12/31/17 Range/Units 00:20 Total Bilirubin 0.3 (0.2-1.0) mg/dL AST 31 (15-37) U/L ALT 25 (12-78) U/L Alkaline Phosphatase 73 (45-117) U/L Albumin 3.4 (3.4-5.0) g/dL Exam Vital signs: Vital Signs 12/31/17 00:12 12/31/17 00:20 12/31/17 00:25 Temperature 97.8 F Pulse Rate 73 82 Respiratory Rate 18 20 Blood Pressure 139/72 155/69 H Pulse Oximetry 98 95 96 12/31/17 00:30 12/31/17 00:45 12/31/17 01:00 Temperature Pulse Rate 82 100 H 98 H Respiratory Rate 20 20 20 Blood Pressure 153/70 H 122/69 118/71 Pulse Oximetry 95 96 97 12/31/17 01:20 12/31/17 01:35 12/31/17 02:00 Temperature Pulse Rate 92 H 92 H 89 Respiratory Rate 20 20 20 Blood Pressure 169/70 H 162/67 H 127/73 Pulse Oximetry 96 97 96 12/31/17 02:34 Temperature Pulse Rate 82 Respiratory Rate 20 Blood Pressure 127/63 Pulse Oximetry 96 Intake & Output 12/30/17 12/30/17 12/31/17 06:59 18:59 06:59 Weight 110.9 kg - Constitutional no acute distress - Routine HEENT Exam Head: Present: normocephalic, atraumatic Eye: Present: EOMI, PERRL, normal accommodation - Routine Neck Exam Present: supple, full ROM. Absent: JVD, carotid bruit - Routine Chest/Breast/Axilla Exam Chest wall: Absent: tenderness - Routine Respiratory Exam Absent: accessory muscle use, rhonchi, stridor, wheezes - Routine Cardiovascular Exam Present: RRR, S1, S2 - Routine Abdominal Exam Present: soft, normoactive bowel sounds. Absent: tenderness, distended - Routine Extremities Exam Absent: cyanosis, clubbing, edema - Routine Skin Exam Present: intact. Absent: cyanosis, erythema - Routine Neurological Exam Present: alert, oriented X3, moving all extremities Caprini VTE Risk Assessment Caprini VTE Risk Assessment: Moderate/High Risk (score >= 2) Caprini Risk Assessment Model: Point Value = 1 Point Value = 2 Point Value = 3 Point Value = 5 Age 41-60 Minor surgery BMI > 25 kg/m2 Swollen legs Varicose veins or History of unexplained or recurrent spontaneous Oral contraceptives or hormone replacement Sepsis (< 1 month) Serious lung disease, including pneumonia (< 1 month) Abnormal pulmonary function Acute myocardial infarction Congestive heart failure (< 1 month) History of inflammatory bowel disease Medical patient at bed rest Age 61-74 Arthroscopic surgery Major open surgery (> 45 min) Laparoscopic surgery (> 45 min) Malignancy Confined to bed (> 72 hours) Immobilizing plaster cast Central venous access Age >= 75 History of VTE Family history of VTE Factor V Leiden Prothrombin [id number] Lupus anticoagulant Anticardiolipin antibodies Elevated serum homocysteine Heparin-induced thrombocytopenia Other congenital or acquired thrombophilia Stroke (< 1 month) Elective arthroplasty Hip, pelvis, or leg fracture Acute spinal cord injury (< 1 month) Prophylaxis Regimen: Total Risk Factor Score Risk Level Prophylaxis Regimen 0-1 Low Early ambulation 2 Moderate Order ONE of the following: *Sequential Compression Device (SCD) *Heparin 5000 units SQ BID 3-4 Higher Order ONE of the following medications: *Heparin 5000 units SQ TID *Enoxaparin/Lovenox 40 mg SQ daily (WT < 150 kg, CrCl > 30 mL/min) *Enoxaparin/Lovenox 30 mg SQ daily (WT < 150 kg, CrCl > 10-29 mL/min) *Enoxaparin/Lovenox 30 mg SQ BID (WT < 150 kg, CrCl > 30 mL/min) AND/OR *Sequential Compression Device (SCD) 5 or more Highest Order ONE of the following medications: *Heparin 5000 units SQ TID (Preferred with Epidurals) *Enoxaparin/Lovenox 40 mg SQ daily (WT < 150 kg, CrCl > 30 mL/min) *Enoxaparin/Lovenox 30 mg SQ daily (WT < 150 kg, CrCl > 10-29 mL/min) *Enoxaparin/Lovenox 30 mg SQ BID (WT < 150 kg, CrCl > 30 mL/min) AND *Sequential Compression Device (SCD) Assessment and Plan - Assessment and Plan Plan: Seroquel overdose -Accidental -Received activated charcoal in the ED -Continue telemetry -Monitor EKG -Supportive care per Poison Control Center Diabetes mellitus -1999 ADA diet -Insulin sliding scale Insomnia -Temazepam Dyslipidemia -Diet-controlled DVT GI prophylaxis -Teds SCDs -Subcu Lovenox -ADA diet 35 minutes of critical care
[2017-12-31] MEDS ORDERED: Chlorhexidine Gluconate 2% 1 Pack (2 Cloths) TOPICAL PRN (04:00)
[2017-12-31] MEDS ORDERED: Chlorhexidine Gluconate 2% 1 Pack (2 Cloths) TOPICAL SCH (04:00)
[2017-12-31 04:13] LABS: Bilirubin,Urine Negative (Negative); Clarity,Urine Clear (Clear); Color,Urine Yellow (Yellw/Straw); Glucose,Urine (UA) Negative (Negative); Leukocyte Esterase,Urine Negative (Negative); Mucus,Urine Few /lpf (Occasional); Nitrite,Urine Negative (Negative); Specific Gravity,Urine 1.011 (1.002-1.035)
[2017-12-31 04:36] LABS: Baso % (Auto) 0.3 % (0.0-2.0); Eos # (Auto) 0.1 th/mm3 (0.0-0.4); Eos % (Auto) 1.2 % (0.0-4.0); Hematocrit 39.1 % (39.0-51.0); Hemoglobin 13.3 gm/dL (13.0-17.0); Lymph % (Auto) 30.9 % (9.0-44.0); Mean Corpuscular Volume 85.2 fL (80.0-100.0); Mean Platelet Volume 8.5 fL (7.0-11.0); Mono # (Auto) 0.6 th/mm3 (0.0-0.9); Mono % (Auto) 9.2 % (0.0-8.0); Neut # (Auto) 3.7 th/mm3 (1.8-7.7); Neut % (Auto) 58.4 % (16.0-70.0); Platelet Count 150 th/mm3 (150-450); Red Blood Count 4.59 mil/mm3 (4.50-5.90); Red Cell Distribution Width 13.8 % (11.6-17.2); White Blood Count 6.3 th/mm3 (4.0-11.0)
[2017-12-31 04:41] LABS: Activated Partial Thrombo Time 25.6 sec (24.3-30.1); INR 1.1 Ratio; Prothrombin Time 10.7 sec (9.8-11.6)
[2017-12-31] MEDS: Sod Chloride 0.9% Inj 1,000 ML IV.CONT SCH ×2 (04:49→10:34)
[2017-12-31 04:54] LABS: Alanine Aminotransferase 21 U/L (12-78); Albumin 3.1 g/dL (3.4-5.0); Anion Gap 13 meq/L (5-15); Aspartate Aminotransferase 26 U/L (15-37); Blood Urea Nitrogen 17 mg/dL (7-18); Calcium 8.3 mg/dL (8.5-10.1); Carbon Dioxide 24.8 meq/L (21.0-32.0); Chloride 108 meq/L (98-107); Glomerular Filtration Rate 65 mL/min (>89); Glucose,Random 110 mg/dL (74-106); Magnesium 2.1 mg/dL (1.5-2.5); Phosphorus 3.2 mg/dL (2.5-4.9); Potassium 3.6 meq/L (3.5-5.1); Sodium 146 meq/L (136-145)
[2017-12-31 04:56] LABS: Alkaline Phosphatase 72 U/L (45-117); Total Protein 6.6 g/dL (6.4-8.2)
[2017-12-31] MEDS ORDERED: Sod Chloride 0.9% Inj 1,000 ML IV.SIG SCH (06:00)
[2017-12-31] MEDS ORDERED: Enoxaparin Inj 40 MG/0.4 ML Syringe SQ SCH (06:00)
[2017-12-31] MEDS ORDERED: Insulin NovoLOG Aspart Correctional Sugar Inj SQ SCH (08:00)
[2017-12-31] MEDS ORDERED: Senna/Docusate Sodium 8.6/50 MG Tablet PO SCH (09:00)
--- NOTE | 2017-12-31 09:50 | P.DS ---
Date of admission: 12/31/17 01:37 Primary care physician: [facility] Brief History from admission: 80-year-old very pleasant gentleman who incidentally took 2 g of Seroquel 20 minutes prior to arrival to emergency department at [facility]. Patient apparently had to handfuls of medication 1 he was putting back in the in the bottle and the other he was going to take. Unfortunately he is very inadvertently took 2 g of Seroquel simultaneously. Patient immediately came to emergency department before symptoms evolved. He takes the Seroquel for sleep. He normally takes 400 mg per night. Patient also has a history of diabetes but is otherwise healthy with hyperlipidemia that is under controlled. Patient did not take this medication to take take his life or harm himself. He has received activated charcoal at [facility], Poison Control Center was notified and recommended telemetry with supportive care. The patient has been admitted to critical care service at the [facility]. DS: Summary Hospital Course: Mr. De La Cruz is a 72-year-old male. He accidentally took 10 Seroquel at night which were 200 mg each. He came into the hospital due to lethargy. This morning he has less lethargy. Based on half-life of 6 hours the patient should have on equivalent level of about 500 mg in his body at approximately noon today. At this point he is cleared for medical discharge if no arrhythmias occurred. Thus far no arrhythmias. - Time Spent with Patient Total time spent providing and/or coordinating discharge services: Less than 30 minutes - Quality: VTE Deep Vein Thrombosis/Pulmonary Embolism Present on Admission: No Exam Vital signs: Vital Signs 12/31/17 00:12 12/31/17 00:20 12/31/17 00:25 Temperature 97.8 F Pulse Rate 73 82 Respiratory Rate 18 20 Blood Pressure 139/72 155/69 H Pulse Oximetry 98 95 96 12/31/17 00:30 12/31/17 00:45 12/31/17 01:00 Temperature Pulse Rate 82 100 H 98 H Respiratory Rate 20 20 20 Blood Pressure 153/70 H 122/69 118/71 Pulse Oximetry 95 96 97 12/31/17 01:20 12/31/17 01:35 12/31/17 02:00 Temperature Pulse Rate 92 H 92 H 89 Respiratory Rate 20 20 20 Blood Pressure 169/70 H 162/67 H 127/73 Pulse Oximetry 96 97 96 12/31/17 02:34 12/31/17 03:00 12/31/17 04:00 Temperature 97.6 F 97.8 F Pulse Rate 82 82 76 Respiratory Rate 20 28 H 23 Blood Pressure 127/63 132/67 132/67 Pulse Oximetry 96 96 96 12/31/17 07:42 12/31/17 08:00 12/31/17 09:00 Temperature Pulse Rate 62 64 Respiratory Rate Blood Pressure Pulse Oximetry 96 95 Intake & Output 12/30/17 12/31/17 12/31/17 18:59 06:59 18:59 Intake Total 1120 / 1120 Output Total 1400 / 1400 Balance -280 / -280 Weight 113.1 kg Intake: IV 1000 / 1000 NS Inj 1,000 ML @ Wide Open IV. 1000 / 1000 SIG BOLUS SHANT Rx#:[id number] Oral 120 / 120 Output: Urine 1400 / 1400 Other: Date of Last Bowel Movement 12/30/17 12/30/17 Weight On Admission 113.1 kg Results Procedures completed during hospitalization: None Labs on day of discharge: Labs from last 24 hours 12/31/17 12/31/17 12/31/17 04:12 04:12 04:12 CBC w Diff WBC 6.3 RBC 4.59 Hgb 13.3 Hct 39.1 MCV 85.2 MCH 29.0 MCHC 34.0 RDW 13.8 Plt Count 150 MPV 8.5 Neut % (Auto) 58.4 Lymph % (Auto) 30.9 [place] % (Auto) 9.2 H Eos % (Auto) 1.2 Baso % (Auto) 0.3 Neut # (Auto) 3.7 Lymph # (Auto) 2.0 [place] # (Auto) 0.6 Eos # (Auto) 0.1 Baso # (Auto) 0.0 WBC Differential . Differential Comment Auto diff final PT 10.7 INR 1.1 APTT 25.6 Sodium 146 H Potassium 3.6 Chloride 108 H Carbon Dioxide 24.8 Anion Gap 13 BUN 17 Creatinine 1.11 Estimated GFR 65 L Random Glucose 110 H Calcium 8.3 L Phosphorus 3.2 Magnesium 2.1 Total Bilirubin 0.3 AST 26 ALT 21 Alkaline Phosphatase 72 Troponin I Total Protein 6.6 Albumin 3.1 L Urine Color Urine Clarity Urine pH Ur Specific [place] Urine Protein Urine Glucose (UA) Urine Ketones Urine Occult Blood Urine Nitrate Urine Bilirubin Urine Urobilinogen Ur Leukocyte Esterase Urine RBC Urine WBC Urine Mucus Micro UA Comment Ur Microscopic Review Urine Culture Comments Nasal Screen MRSA (PCR) 12/31/17 12/31/17 12/31/17 03:47 03:00 00:20 CBC w Diff WBC RBC Hgb Hct MCV MCH MCHC RDW Plt Count MPV Neut % (Auto) Lymph % (Auto) [place] % (Auto) Eos % (Auto) Baso % (Auto) Neut # (Auto) Lymph # (Auto) [place] # (Auto) Eos # (Auto) Baso # (Auto) WBC Differential Differential Comment PT INR APTT Sodium 141 Potassium 3.7 Chloride 106 Carbon Dioxide 24.1 Anion Gap 11 BUN 19 H Creatinine 1.00 Estimated GFR 74 L Random Glucose 109 H Calcium 8.4 L Phosphorus Magnesium Total Bilirubin 0.3 AST 31 ALT 25 Alkaline Phosphatase 73 Troponin I Less than 0.02 L Total Protein 7.1 Albumin 3.4 Urine Color Yellow Urine Clarity Clear Urine pH 5.0 Ur Specific [place] 1.011 Urine Protein Negative Urine Glucose (UA) Negative Urine Ketones Negative Urine Occult Blood Negative Urine Nitrate Negative Urine Bilirubin Negative Urine Urobilinogen Less than 2 Ur Leukocyte Esterase Negative Urine RBC Less than 1 Urine WBC 1 Urine Mucus Few H Micro UA Comment Culture not ind Ur Microscopic Review Not Reportable Urine Culture Comments Culture not ind Nasal Screen MRSA (PCR) Not detected 12/31/17 12/31/17 00:20 00:20 CBC w Diff Auto diff final WBC 7.8 RBC 4.96 Hgb 14.6 Hct 41.4 MCV 83.4 MCH 29.4 MCHC 35.2 RDW 12.9 Plt Count 176 MPV 9.2 Neut % (Auto) 59.9 Lymph % (Auto) 29.8 [place] % (Auto) 8.2 H Eos % (Auto) 1.1 Baso % (Auto) 1.0 Neut # (Auto) 4.7 Lymph # (Auto) 2.3 [place] # (Auto) 0.6 Eos # (Auto) 0.1 Baso # (Auto) 0.1 WBC Differential . Differential Comment . PT INR APTT Sodium Potassium Chloride Carbon Dioxide Anion Gap BUN Creatinine Estimated GFR Random Glucose Calcium Phosphorus 3.5 Magnesium 2.0 Total Bilirubin AST ALT Alkaline Phosphatase Troponin I Total Protein Albumin Urine Color Urine Clarity Urine pH Ur Specific [place] Urine Protein Urine Glucose (UA) Urine Ketones Urine Occult Blood Urine Nitrate Urine Bilirubin Urine Urobilinogen Ur Leukocyte Esterase Urine RBC Urine WBC Urine Mucus Micro UA Comment Ur Microscopic Review Urine Culture Comments Nasal Screen MRSA (PCR) Discharge Plan - Discharge Disposition Patient Disposition: 01 Discharge Home - Discharge Condition Condition: Stable - Discharge Order Discharge Orders: Discharge Order (Routine); Ordered 12/31/17 Ordered By: Kalia Zhang - Discharge Details Anticipated Discharge Date: 12/31/17 Discharge Comment: July discharge after noon, if no arrhythmias occur. Patient to skip seroquel dose tonight. - Physicians Team Primary Care Provider: [facility],Physician 's Attending Provider: Kalia Zhang Other Providers: Justin Rojas MD ; Tabby Junior MD ; Ilia Calles MD
[2017-12-31 10:33] VITALS: TEMP 98.4
[2017-12-31 14:33] VITALS: BP 129/76; PULSE 59; RESP 24; O2SAT 96
--- NOTE | 2017-12-31 19:37 | ECG ---
Date Performed: 12/31/2017 Time Performed: 05:04:52 PTAGE: 72 years EKG: Sinus rhythm . Left axis deviation RBBB with left anterior fascicular block Abnormal ECG PREVIOUS TRACING : 06/12/2016 09.46 Since the previous tracing, no significant change noted DOCTOR: Rolando Wolf Interpretating Date/Time 12/31/2017 19:37:04
--- NOTE | 2017-12-31 19:46 | ECG ---
Date Performed: 12/31/2017 Time Performed: 00:45:36 PTAGE: 72 years EKG: Sinus rhythm RIGHT BUNDLE BRANCH BLOCK LEFT ANTERIOR FASCICULAR BLOCK ABNORMAL ECG NO PREVIOUS TRACING DOCTOR: Rolando Wolf Interpretating Date/Time 12/31/2017 19:45:49
== END 2017-12-31 14:55 | disposition home or self-care (01) ==
LOC: PHED 00:04 → PHEDA 01:37 → N03 02:55
PROVIDERS: ADMIT Hospitalist; ATTEND Hospitalist